=== PATIENT | female | born 1960 | race Caucasian/White ===

== ENCOUNTER → 2021-05-04 | Outpatient (CLI) | payer MEDICARE, MEDICAID, SELFPAY ==
--- NOTE | 2021-05-04 08:46 | XR_ITS ---
Examination: IR staple removal Port-A-Cath implantation site at bedside Exam date and time: May 04, 2021 0846 hours INDICATIONS: Diagnosis malignant neoplasm larynx, Port-A-Cath insertion April 23, 2021 TECHNIQUE: Informed consent provided, Timeout performed Careful IR staple is at the Port-A-Cath implantation site Estimated blood loss 0 cc Patient in stable condition a completion procedure IMPRESSION: Successful IR removal seth at the Port-A-Cath implantation site
== END | disposition home or self-care (01) ==
PROVIDERS: PCP Nurse Practitioner Family; Referring Provider Internal Medicine Hematology & Oncology; Visit Provider Internal Medicine Hematology & Oncology
DX: I10 Essential (primary) hypertension (principal)

== ENCOUNTER 2024-07-04 13:04 | Outpatient (RCR) | payer MEDICARE, MEDICAID, SELFPAY ==
[2024-06-27 15:16] LABS: Basophils % (Auto) 1 % (0-2.5); Eosinophils # (Auto) 0.4 Thou/mm3 (0.0-0.5); Eosinophils % (Auto) 5 % (0-10); Hemoglobin 8.5 g/dL (12.0-16.0); Immature Granulocytes % (Auto) 2 % (0-0); Immature Granulocytes Auto 0.11 Thou/mm3 (0.00-0.00); Lymphocytes # (Auto) 0.6 Thou/mm3 (1.0-4.8); Lymphocytes % (Auto) 8 % (10-50); Mean Corpuscular HGB Conc 31.5 g/dl (31.0-37.0); Mean Corpuscular Hemoglobin 28.3 pg (25.0-35.0); Mean Corpuscular Volume 90 fL (80-100); Monocytes # (Auto) 0.6 Thou/mm3 (0.0-0.8); Monocytes % (Auto) 8 % (0-12); Neutrophils # (Auto) 5.7 Thou/mm3 (1.8-7.7); Neutrophils % (Auto) 77 % (37-80); Nucleated Red Blood Cell % 0 /100 WBC (0); Platelet Count 359 Thou/mm3 (140-440); RDW Standard Deviation 56.3 fL (36.4-46.3); White Blood Count 7.4 Thou/mm3 (3.6-11.0)
[2024-06-27 15:46] LABS: Alanine Aminotransferase < 7 U/L (10-49); Albumin, Serum 3.3 gm/dL (3.4-4.8); Albumin/Globulin Ratio 1.1 (1.2-2.2); Alkaline Phosphatase 121 U/L (46-116); Anion Gap 4 (7-16); Aspartate Amino Transferase 12 U/L (0-34); BUN/Creatinine Ratio 36 Ratio (12-20); Bilirubin,Total 0.3 mg/dL (0.3-1.2); Blood Urea Nitrogen 25 mg/dL (9-23); Calcium 8.7 mg/dL (8.3-10.6); Calcium (Corrected) 9.3 mg/dL (8.5-10.1); Carbon Dioxide 28.1 mMol/L (20.0-31.0); Chloride 97 mMol/L (98-107); Creatinine (Component) 0.7 mg/dL (0.6-1.3); Glucose 106 mg/dL (74-106); Osmolality,Calculated 263 (275-295); Potassium 4.3 mMol/L (3.4-5.1); Sodium 129 mMol/L (136-145); Total Protein 6.3 gm/dL (5.7-8.2); eGFR > 60 See Note
== END 2024-07-21 23:59 | disposition home or self-care (01) ==
LOC: SCTC 13:04
PROVIDERS: PCP Family Medicine; Referring Provider Family Medicine; Visit Provider Internal Medicine Hematology & Oncology
DX: Z51.11 Encounter for antineoplastic chemotherapy (principal); C32.8 Malignant neoplasm of overlapping sites of larynx; Z92.3 Personal history of irradiation
CPT/HCPCS: 36591; 80053; 85025; 96365; 96367; 96401; 99212; A4216; J1100; J1453; J1642; J2405; J3490; J9260; G0463